=== PATIENT | female | born 1955 | race Caucasian/White ===

== ENCOUNTER → 2016-04-20 | Outpatient (CLI) | payer BC ==
--- NOTE | 2016-04-20 12:41 | RAD ---
Right breast ultrasound History: Abnormal screening mammogram. Comparison: Mammograms 03/22/2016, 08/02/2014, 02/10/2013. Findings: Ultrasound imaging was performed of the right breast by soil technologist. Within the right breast at 1:00, 3 cm from nipple, there is a small apparent hypoechoic mass which measures 5 x 4 x 3 mm. It is uncertain if this truly corresponds to the mammographic abnormality, as the mammographic abnormality was seen only on CC view. Mass demonstrates some internal echogenicity, and could represent cluster of microcysts versus small fibroadenoma. Recommend a follow-up diagnostic right mammogram and right breast ultrasound in 6 months. Impression: Small mass is seen in the right breast at 1:00, 3 cm from nipple, which measures 5 mm in maximum dimension. It is not completely certain if this corresponds to mammographic abnormality. Recommend follow-up diagnostic right mammogram and right breast ultrasound in 6 months to ensure stability. BI-RADS CATEGORY: 3 PROBABLY BENIGN FINDING(S)-SHORT INTERVAL FOLLOW-UP SUGGESTED RECOMMENDED FOLLOW-UP: 6M 6 MONTH FOLLOW-UP
== END | disposition home or self-care (01) ==
LOC: KCIC US 12:12
PROVIDERS: ATTEND Family Medicine
DX: R92.8 Other abnormal and inconclusive findings on diagnostic imaging of breast (principal); N63 Unspecified lump in breast
CPT/HCPCS: 76641